=== PATIENT | male | born 1955 | race American Indian/Alaskan Native ===

== ENCOUNTER 2021-10-01 11:30 | Emergency (ER) | payer MEDICARE ==
[2021-10-02] MEDS ORDERED: SODIUM CHLORIDE 0.9% 1000 ML 1,000 ML IV ONE ×2 (00:09→01:48)
--- NOTE | 2021-10-02 00:30 | Emergency Department Report ---
ED General Adult HPI - General Chief complaint: Dizziness Stated complaint: DEHYDRATED Time Seen by Provider: 10/02/21 00:09 Source: patient Mode of arrival: Ambulatory Limitations: No Limitations - History of Present Illness Initial comments: Patient is 66 years old male with remote history of throat cancer in 2007 treated with surgery and radiation. Patient presented to the ER stating that he feels like he is dehydrated. Patient stated that his daughter is an RN and told him that he is dehydrated. Patient stated that he has been drinking a lot of fluid however he is feeling dizziness and he felt like his head is full. He is complaining of sore throat but denies any difficulty swallowing or difficulty breathing. He denies any focal weakness numbness or tingling sensation. No ataxia. Patient stated that the symptoms been going on for few days. Severity scale (0 -10): 6 - Related Data Allergies Allergy/AdvReac Type Severity Reaction Status Date / Time No Known Allergies Allergy Verified 10/01/21 13:35 ED Review of Systems ROS: Stated complaint: DEHYDRATED Other details as noted in HPI Comment: All other systems reviewed and negative Constitutional: denies: chills, fever Respiratory: denies: cough, shortness of breath, SOB with exertion, SOB at rest Cardiovascular: denies: chest pain, palpitations, dyspnea on exertion Gastrointestinal: denies: abdominal pain, nausea, vomiting, diarrhea Musculoskeletal: denies: back pain Neurological: denies: headache, weakness, numbness, paresthesias, confusion, abnormal gait ED Past Medical Hx - Past Medical History Previous Medical History?: No - Surgical History Past Surgical History?: No - Social History Smoking Status: Never Smoker Substance Use Type: None ED Physical Exam - General Limitations: No Limitations General appearance: alert, in no apparent distress - Head Head exam: Present: atraumatic, normocephalic, normal inspection - Eye Eye exam: Present: normal appearance - ENT ENT exam: Present: normal exam, normal orophraynx, mucous membranes moist - Neck Neck exam: Present: normal inspection, full ROM. Absent: tenderness, meningismus - Respiratory Respiratory exam: Present: normal lung sounds bilaterally - Cardiovascular Cardiovascular Exam: Present: regular rate, normal rhythm, normal heart sounds - GI/Abdominal GI/Abdominal exam: Present: soft. Absent: distended, tenderness, guarding, rebound, rigid, normal bowel sounds - Extremities Exam Extremities exam: Present: normal inspection, full ROM, normal capillary refill. Absent: tenderness - Back Exam Back exam: Present: normal inspection, full ROM. Absent: CVA tenderness (R), CVA tenderness (L) - Neurological Exam Neurological exam: Present: alert, oriented X3, CN II-XII intact, normal gait, reflexes normal - Psychiatric Psychiatric exam: Present: normal mood - Skin Skin exam: Present: warm, intact, normal color ED Course Vital Signs 10/01/21 10/02/21 10/02/21 13:36 01:16 01:30 Temperature 97.5 F L Pulse Rate 96 H 77 70 Respiratory 18 17 17 Rate Blood Pressure 179/111 Blood Pressure 204/148 [Left] O2 Sat by Pulse 97 100 100 Oximetry 10/02/21 10/02/21 10/02/21 01:46 02:00 02:16 Temperature Pulse Rate 75 77 78 Respiratory 18 18 17 Rate Blood Pressure 179/111 192/118 192/118 Blood Pressure [Left] O2 Sat by Pulse 100 100 100 Oximetry 10/02/21 10/02/21 10/02/21 02:30 02:46 03:00 Temperature Pulse Rate 78 79 75 Respiratory 17 15 15 Rate Blood Pressure 161/96 161/96 132/90 Blood Pressure [Left] O2 Sat by Pulse 100 100 100 Oximetry 10/02/21 10/02/21 10/02/21 03:16 03:30 03:46 Temperature Pulse Rate 74 73 76 Respiratory 16 12 16 Rate Blood Pressure 132/90 167/111 167/111 Blood Pressure [Left] O2 Sat by Pulse 100 97 100 Oximetry 10/02/21 10/02/21 10/02/21 04:00 04:16 04:20 Temperature Pulse Rate 74 73 80 Respiratory 14 14 Rate Blood Pressure 159/100 159/100 172/93 Blood Pressure [Left] O2 Sat by Pulse 100 100 Oximetry 10/02/21 10/02/21 10/02/21 04:30 04:46 05:00 Temperature Pulse Rate 75 77 77 Respiratory 12 12 13 Rate Blood Pressure 172/93 172/93 101/63 Blood Pressure [Left] O2 Sat by Pulse 100 99 99 Oximetry ED Medical Decision Making - Lab Data Result diagrams: 10/02/21 00:17 10/02/21 00:17 - EKG Data -: EKG Interpreted by [facility] EKG shows normal: sinus rhythm Rate: normal - EKG Data Interpretation: no acute changes - Radiology Data Radiology results: report reviewed - Medical Decision Making Patient is 66 years old male with remote history of throat cancer in 2007 treated with surgery and radiation. Patient presented to the ER stating that he feels like he is dehydrated. Patient stated that his daughter is an RN and told him that he is dehydrated. Patient stated that he has been drinking a lot of fluid however he is feeling dizziness and he felt like his head is full. He is complaining of sore throat but denies any difficulty swallowing or difficulty breathing. He denies any focal weakness numbness or tingling sensation. No ataxia. Patient stated that the symptoms been going on for few days. Labs reviewed and is unremarkable. CT brain is negative for acute finding. X- ray of the chest is unremarkable. Patient found to be hypertensive. Patient received hydralazine 10 mg IV x2. Patient stated that he is feeling much better. Patient advised to comply with his antihypertensive medication. He st ated that he is taking amlodipine. Patient advised to follow-up with his primary doctor in the next 2 to 3 days and to return to the ER if he develop any new symptoms. Critical care attestation.: If time is entered above; I have spent that time in minutes in the direct care of this critically ill patient, excluding procedure time. ED Disposition Clinical Impression: Dizziness, Malignant hypertension Disposition: 01 HOME / SELF CARE / HOMELESS Is pt being admited?: No Condition: Stable Instructions: Hypertension (ED), Hypertension, Adult, [id number], Dizziness, [id number] Referrals: PRIMARY CARE [Referring] - 3-5 Days
[2021-10-02 00:35] LABS: Basophils % (Auto) 0.4 % (0.0-1.8); Eosinophils # (Auto) 0.1 K/mm3 (0.0-0.4); Eosinophils % (Auto) 2.7 % (0.0-4.3); Hemoglobin 13.1 gm/dl (11.8-15.2); Lymphocytes # (Auto) 0.9 K/mm3 (1.2-5.4); Lymphocytes % (Auto) 20.9 % (13.4-35.0); Mean Corpuscular HGB Conc 35 % (32-34); Mean Corpuscular Volume 86 fl (84-94); Monocytes # (Auto) 0.3 K/mm3 (0.0-0.8); Monocytes % (Auto) 7.6 % (0.0-7.3); Platelet Count 200 K/mm3 (140-440); Red Blood Count 4.44 M/mm3 (3.65-5.03); Red Cell Distribution Width 15.8 % (13.2-15.2)
[2021-10-02 00:51] LABS: BUN/Creatinine Ratio 12; Blood Urea Nitrogen 13 mg/dL (9-20); Calcium 9.8 mg/dL (8.4-10.2); Hemolysis Index 9
[2021-10-02 00:55] LABS: Alanine Aminotransferase 8 units/L (7-56); Albumin 4.4 g/dL (3.9-5)
[2021-10-02 01:04] LABS: Bilirubin,Direct < 0.2 mg/dL (0-0.2)
--- NOTE | 2021-10-02 01:20 | XRay Report ---
CHEST 1 VIEW 10/01/2021 11:24 PM INDICATION / CLINICAL INFORMATION: Lightheadedness/Dizziness. COMPARISON: None available. FINDINGS: SUPPORT DEVICES: None. HEART / MEDIASTINUM: No significant abnormality. LUNGS / PLEURA: No significant pulmonary or pleural abnormality. No pneumothorax. ADDITIONAL FINDINGS: No significant additional findings. IMPRESSION: 1. No acute findings. Signer Name: Colin Hernandez DO Signed: 10/02/2021 1:15 AM Workstation Name: [id number]
--- NOTE | 2021-10-02 01:24 | Cat Scan Report ---
CT HEAD WITHOUT CONTRAST INDICATION / CLINICAL INFORMATION: Patient complains of dizziness. TECHNIQUE: All CT scans at this location are performed using CT dose reduction for ALARA by means of automated exposure control. COMPARISON: None available. FINDINGS: HEMORRHAGE: None. EXTRA-AXIAL SPACES: Normal in size and morphology for the patient's age. VENTRICULAR SYSTEM: Normal in size and morphology for the patient's age. CEREBRAL PARENCHYMA: No significant abnormality. No acute territorial infarct. MIDLINE SHIFT / HERNIATION: None. CEREBELLUM / BRAINSTEM: No significant abnormality. ORBITS: Normal as visualized SOFT TISSUES: No significant abnormality. SKULL: No significant abnormality. PARANASAL SINUSES / MASTOID AIR CELLS: Normal as visualized ADDITIONAL FINDINGS: None. IMPRESSION: 1. No acute intracranial abnormality. Signer Name: Colin Hernandez DO Signed: 10/02/2021 1:20 AM Workstation Name: [email or web address]
[2021-10-02] MEDS ORDERED: hydrALAZINE 20 MG/1 ML INJ IV ONE ×2 (01:48→04:15)
[2021-10-02 02:39] LABS: Bilirubin,Urine NEG (Negative); Blood,Urine NEG (Negative); Color,Urine Colorless (Yellow); Mucus,Urine FEW /HPF; Protein,Urine <15 mg/dL mg/dL (Negative); Urobilinogen,Urine < 2.0 mg/dL (<2.0); WBC,Urine < 1.0 /HPF (0.0-6.0)
[2021-10-02 06:10] VITALS: BP 127/77
== END 2021-10-02 06:08 | disposition home or self-care (01) ==
LOC: EDSEX → ED 11:30
DX: R42 Dizziness and giddiness (principal); I10 Essential (primary) hypertension
CPT/HCPCS: 36415; 70450; 71045; 80048; 80076; 81001; 82140; 84484; 85025; 93005; 96361; 96374; 96376; 99284; J0360; J7030; 80320; G0480